=== PATIENT | male | born 1990 | race African-American/Black ===

== ENCOUNTER 2021-06-23 15:07 | Emergency (ER) | payer MEDICAID ==
[~2021-06-23] VITALS: Ht 182.9 cm; Wt 114.0 kg
[2021-06-23 15:11] VITALS: BP 140/98
== END 2021-06-23 16:09 | disposition home or self-care (01) ==
LOC: ER 15:07
DX: M25.562 Pain in left knee (principal); G89.11 Acute pain due to trauma; V49.50XA Passenger injured in collision with unspecified motor vehicles in traffic accident, initial encounter; Y93.89 Activity, other specified; Y92.488 Other paved roadways as the place of occurrence of the external cause
CPT/HCPCS: 73562; 99283

== ENCOUNTER 2023-11-02 18:47 | Emergency (ER) | payer MEDICAID, OTHER ==
[~2023-11-02] VITALS: Ht 182.9 cm; Wt 95.3 kg
[2023-11-02 18:58] VITALS: BP 158/84; PULSE 86; RESP 16; TEMP 98.7; O2SAT 99
[2023-11-02] MEDS ORDERED: IBUP-2029 MT (19:40)
== END 2023-11-02 21:30 | disposition home or self-care (01) ==
LOC: ER 18:47
DX: M79.641 Pain in right hand (principal); F12.10 Cannabis abuse, uncomplicated; Y04.0XXA Assault by unarmed brawl or fight, initial encounter; Y93.89 Activity, other specified; Y92.89 Other specified places as the place of occurrence of the external cause; Y99.8 Other external cause status
CPT/HCPCS: 29125; 73120; 99283